=== PATIENT | female | born 1970 | race Caucasian/White ===

== ENCOUNTER 2020-07-27 12:32 | Inpatient (IN) | payer SELFPAY ==
[~2020-07-27] VITALS: Ht 162.6 cm; Wt 50.8 kg
[2020-07-27] MEDS ORDERED: KETOROLAC TROMETHAMINE 30 MG/ML VIAL IV STA (12:49)
[2020-07-27] MEDS ORDERED: ONDANSETRON HCL INJ 2MG/ML 2ML 2 MG/ML VIAL IV STA (12:49)
[2020-07-27] MEDS ORDERED: SODIUM CHLORIDE 0.9% 1000ML 1,000 ML IV STA (12:49)
[2020-07-27 13:10] LABS: BASOPHILS # (AUTO) 0.1 (0.0-0.1); BASOPHILS % 0.6 % (0.0-1.0); EOSINOPHILS # (AUTO) 0.3 (0.0-0.4); EOSINOPHILS % 2.1 % (0.0-6.0); HEMATOCRIT 46.9 % (34.2-44.1); HEMOGLOBIN 15.5 g/dL (12.0-16.0); LYMPHOCYTES # (AUTO) 1.2 (1.0-3.2); LYMPHOCYTES % 10.4 % (18.0-39.1); MEAN CORPUSCULAR HEMOGLOBIN 30.9 pg (28-32); MEAN CORPUSCULAR VOLUME 93.6 fL (81-99); MONOCYTES # (AUTO) 0.8 (0.2-0.8); MONOCYTES % 6.6 % (4.4-11.3); NEUTROPHILS # (AUTO) 9.6 (2.1-6.9); PLATELET COUNT 238 x10e3/uL (140-360); RED BLOOD COUNT 5.01 x10e6/uL (3.6-5.1); RED CELL DISTRIBUTION WIDTH 12.7 % (11.7-14.4)
[2020-07-27 13:28] LABS: ALBUMIN 4.3 g/dL (3.5-5.0); ALBUMIN/GLOBULIN RATIO 1.2 (0.8-2.0); ANION GAP 15.7 mmol/L (8-16); CALCIUM 9.1 mg/dL (8.4-10.2); CREATININE, SERUM 1.12 mg/dL (0.57-1.11); POTASSIUM 3.7 mmol/L (3.5-5.1)
[2020-07-27 13:35] LABS: CREATINE KINASE MB 0.5 ng/mL (0-5.0)
[2020-07-27] MEDS ORDERED: IOPAMIDOL 370 MG/ML 200 ML INFUS..BTL INJ ONE (13:43)
[2020-07-27 13:47] LABS: CLARITY,URINE CLEAR (CLEAR); COLOR,URINE YELLOW (YELLOW)
[2020-07-27 13:49] LABS: AMPHETAMINES SCREEN,URINE POSITIVE (NEGATIVE); BENZODIAZEPINES SCREEN,URINE NEGATIVE (NEGATIVE); KETONES,URINE 1+ (NEGATIVE); LEUKOCYTE ESTERASE ,URINE TRACE (NEGATIVE); NITRITE,URINE NEGATIVE (NEGATIVE); PHENCYCLIDINE SCREEN,URINE NEGATIVE (NEGATIVE); PROTEIN,URINE DIPSTICK 1+ (NEGATIVE); URINE UROBILINOGEN 0.2 mg/dL (0.2 - 1)
[2020-07-27 13:57] LABS: BACTERIA,URINE FEW /HPF; EPITHELIAL CELLS,URINE FEW /LPF; WBC,URINE (MAN) 21-50 /HPF (0-5)
[2020-07-27] MEDS ORDERED: ONDANSETRON HCL INJ 2MG/ML 2ML 2 MG/ML VIAL IV PRN (15:00)
[2020-07-27] MEDS ORDERED: MORPHINE SULFATE INJ 4 MG/ML INJ 1ML IV PRN (15:00)
[2020-07-27 17:16] VITALS: BP 125/86
[2020-07-27] MEDS ORDERED: CYCLOBENZAPRINE5 MG PO (17:24)
[2020-07-27] MEDS ORDERED: KLONOPIN0.5 MG PO (17:25)
[2020-07-27] MEDS ORDERED: CEFTRIAXONE SOD 1 GM/NS 50 ML 50 ML IV SCH (19:30)
[2020-07-27 20:00] VITALS: BP 136/80
[2020-07-27] MEDS: CEFTRIAXONE SOD 1 GM in SODIUM CHLORIDE 0.9% 50ML 50 ML IV SCH (20:35)
[2020-07-27] MEDS: D5.45%NS/KCL 20MEQ 1,000 ML IV SCH (20:35)
[2020-07-27 21:00] VITALS: BP 136/80
[2020-07-28] VITALS (8 sets, daily range): BP systolic 101–136; BP diastolic 69–90
[2020-07-28] MEDS: D5.45%NS/KCL 20MEQ 1,000 ML IV SCH ×3 (01:50→16:10)
[2020-07-28 05:52] LABS: BASOPHILS % 0.5 % (0.0-1.0); EOSINOPHILS # (AUTO) 0.3 (0.0-0.4); EOSINOPHILS % 4.2 % (0.0-6.0); HEMATOCRIT 36.4 % (34.2-44.1); HEMOGLOBIN 11.8 g/dL (12.0-16.0); LYMPHOCYTES # (AUTO) 1.5 (1.0-3.2); LYMPHOCYTES % 20.8 % (18.0-39.1); MEAN CORPUSCULAR HEMOGLOBIN 30.4 pg (28-32); MEAN CORPUSCULAR HGB CONC 32.4 g/dL (31-35); MEAN CORPUSCULAR VOLUME 93.8 fL (81-99); MONOCYTES # (AUTO) 0.8 (0.2-0.8); MONOCYTES % 11.1 % (4.4-11.3); NEUTROPHILS # (AUTO) 4.7 (2.1-6.9); NEUTROPHILS % 63.1 % (38.7-80.0); PLATELET COUNT 171 x10e3/uL (140-360); RED BLOOD COUNT 3.88 x10e6/uL (3.6-5.1); RED CELL DISTRIBUTION WIDTH 12.6 % (11.7-14.4)
[2020-07-28 07:19] LABS: ALBUMIN 2.5 g/dL (3.5-5.0); ALBUMIN/GLOBULIN RATIO 1.3 (0.8-2.0); ANION GAP 8.5 mmol/L (8-16); CREATININE, SERUM 1.05 mg/dL (0.57-1.11)
[2020-07-28 07:26] LABS: CALCIUM 6.7 mg/dL (8.4-10.2); POTASSIUM 6.5 mmol/L (3.5-5.1)
[2020-07-28 08:41] LABS: ALBUMIN/GLOBULIN RATIO 1.3 (0.8-2.0); CALCIUM 8.3 mg/dL (8.4-10.2); CREATININE, SERUM 0.99 mg/dL (0.57-1.11)
[2020-07-28 08:55] LABS: ALBUMIN 3.4 g/dL (3.5-5.0)
[2020-07-28 09:27] LABS: MAGNESIUM 1.5 MG/DL (1.3-2.1); PHOSPHORUS 3.2 MG/DL (2.3-4.7)
[2020-07-28] MEDS: PANTOPRAZOLE 40 MG 10ML VIAL IV SCH (09:48)
[2020-07-28] MEDS: CEFTRIAXONE SOD 1 GM in SODIUM CHLORIDE 0.9% 50ML 50 ML IV SCH (22:22)
[2020-07-28] MEDS: DEXTROSE 5%/0.45% SOD CHL 1,000 ML IV SCH (22:22)
[2020-07-29] VITALS (8 sets, daily range): BP systolic 102–130; BP diastolic 70–92
[2020-07-29 05:40] LABS: BASOPHILS % 0.5 % (0.0-1.0); EOSINOPHILS # (AUTO) 0.3 (0.0-0.4); EOSINOPHILS % 4.9 % (0.0-6.0); HEMATOCRIT 39.7 % (34.2-44.1); HEMOGLOBIN 13.2 g/dL (12.0-16.0); LYMPHOCYTES # (AUTO) 1.9 (1.0-3.2); LYMPHOCYTES % 30.1 % (18.0-39.1); MEAN CORPUSCULAR HEMOGLOBIN 31.1 pg (28-32); MEAN CORPUSCULAR HGB CONC 33.2 g/dL (31-35); MEAN CORPUSCULAR VOLUME 93.6 fL (81-99); MONOCYTES # (AUTO) 0.7 (0.2-0.8); MONOCYTES % 11.2 % (4.4-11.3); NEUTROPHILS # (AUTO) 3.4 (2.1-6.9); PLATELET COUNT 177 x10e3/uL (140-360); RED BLOOD COUNT 4.24 x10e6/uL (3.6-5.1); RED CELL DISTRIBUTION WIDTH 12.1 % (11.7-14.4)
[2020-07-29 05:59] LABS: ALANINE AMINOTRANSFERASE 49 IU/L (0-55); ALBUMIN 3.1 g/dL (3.5-5.0); ALBUMIN/GLOBULIN RATIO 1.3 (0.8-2.0); ALKALINE PHOSPHATASE 102 IU/L (40-150); ANION GAP 12.5 mmol/L (8-16); BLOOD UREA NITROGEN 7 mg/dL (7-26); BUN/CREATININE RATIO 8 (6-25); CALCIUM 8.2 mg/dL (8.4-10.2); CARBON DIOXIDE 22 mmol/L (22-29); CHLORIDE 110 mmol/L (98-107); EST GLOMERULAR FILTRATION RATE > 60 ML/MIN (60-); GLUCOSE 85 mg/dL (74-118); POTASSIUM 3.5 mmol/L (3.5-5.1); SODIUM 141 mmol/L (136-145)
[2020-07-29] MEDS: PANTOPRAZOLE 40 MG 10ML VIAL IV SCH (09:12)
[2020-07-29 09:21] LABS: MAGNESIUM 1.5 MG/DL (1.3-2.1); PHOSPHORUS 3.4 MG/DL (2.3-4.7)
[2020-07-29] MEDS ORDERED: SODIUM CHLORIDE 0.9% 50ML 50 ML ONE (12:27)
[2020-07-29] MEDS ORDERED: GADOBENATE DIMEGLUMINE 1 ML IV ONE (12:28)
[2020-07-29] MEDS ORDERED: NON-FORMULARY MEDICATION (Cyclobenzaprine Hcl (Flexeril) 5 MG) PO SCH (15:00)
[2020-07-29] MEDS ORDERED: CYCLOBENZAPRINE HCL PO SCH (15:00)
[2020-07-29] MEDS: DEXTROSE 5%/0.45% SOD CHL 1,000 ML IV SCH (15:15)
[2020-07-29] MEDS: CYCLOBENZAPRINE HCL 10 MG TAB PO SCH ×2 (15:35→21:36)
[2020-07-29 19:26] LABS: INR 0.97; PROTHROMBIN TIME 13.5 seconds (11.9-14.5)
[2020-07-29] MEDS: CEFTRIAXONE SOD 1 GM in SODIUM CHLORIDE 0.9% 50ML 50 ML IV SCH (21:36)
[2020-07-29] MEDS: CLONAZEPAM 0.5 MG TAB PO SCH (21:36)
[2020-07-30] VITALS (9 sets, daily range): BP systolic 100–127; BP diastolic 67–94
[2020-07-30] MEDS: DEXTROSE 5%/0.45% SOD CHL 1,000 ML IV SCH ×2 (02:51→11:15)
[2020-07-30 06:23] LABS: BASOPHILS # (AUTO) 0.1 (0.0-0.1); BASOPHILS % 0.7 % (0.0-1.0); EOSINOPHILS # (AUTO) 0.3 (0.0-0.4); EOSINOPHILS % 4.9 % (0.0-6.0); HEMATOCRIT 37.6 % (34.2-44.1); HEMOGLOBIN 12.5 g/dL (12.0-16.0); LYMPHOCYTES # (AUTO) 1.7 (1.0-3.2); MEAN CORPUSCULAR HEMOGLOBIN 30.7 pg (28-32); MEAN CORPUSCULAR HGB CONC 33.2 g/dL (31-35); MEAN CORPUSCULAR VOLUME 92.4 fL (81-99); MONOCYTES # (AUTO) 0.8 (0.2-0.8); MONOCYTES % 11.5 % (4.4-11.3); NEUTROPHILS # (AUTO) 3.9 (2.1-6.9); NEUTROPHILS % 57.6 % (38.7-80.0); PLATELET COUNT 174 x10e3/uL (140-360); RED BLOOD COUNT 4.07 x10e6/uL (3.6-5.1); RED CELL DISTRIBUTION WIDTH 12.4 % (11.7-14.4)
[2020-07-30 06:44] LABS: BILIRUBIN,DIRECT 0.2 mg/dL (0.0-0.5)
[2020-07-30] MEDS: CYCLOBENZAPRINE HCL 10 MG TAB PO SCH ×3 (09:00→21:00)
[2020-07-30] MEDS: PANTOPRAZOLE 40 MG 10ML VIAL IV SCH (09:00)
[2020-07-30 12:51] LABS: AMYLASE 38 U/L (25-125); LIPASE 18 U/L (8-78)
[2020-07-30] MEDS: CEFTRIAXONE SOD 1 GM in SODIUM CHLORIDE 0.9% 50ML 50 ML IV SCH (20:09)
[2020-07-30] MEDS: CLONAZEPAM 0.5 MG TAB PO SCH (21:00)
[2020-07-31] VITALS (8 sets, daily range): BP systolic 108–140; BP diastolic 68–90
[2020-07-31] MEDS: DEXTROSE 5%/0.45% SOD CHL 1,000 ML IV SCH ×3 (01:48→23:46)
[2020-07-31 05:25] LABS: BASOPHILS % 0.7 % (0.0-1.0); EOSINOPHILS # (AUTO) 0.3 (0.0-0.4); EOSINOPHILS % 5.9 % (0.0-6.0); HEMATOCRIT 38.5 % (34.2-44.1); HEMOGLOBIN 12.8 g/dL (12.0-16.0); LYMPHOCYTES # (AUTO) 1.8 (1.0-3.2); LYMPHOCYTES % 30.6 % (18.0-39.1); MEAN CORPUSCULAR HEMOGLOBIN 30.4 pg (28-32); MEAN CORPUSCULAR HGB CONC 33.2 g/dL (31-35); MEAN CORPUSCULAR VOLUME 91.4 fL (81-99); MONOCYTES # (AUTO) 0.7 (0.2-0.8); MONOCYTES % 12.8 % (4.4-11.3); NEUTROPHILS # (AUTO) 2.9 (2.1-6.9); NEUTROPHILS % 49.8 % (38.7-80.0); PLATELET COUNT 177 x10e3/uL (140-360); RED BLOOD COUNT 4.21 x10e6/uL (3.6-5.1); RED CELL DISTRIBUTION WIDTH 12.2 % (11.7-14.4)
[2020-07-31 05:48] LABS: ALANINE AMINOTRANSFERASE 37 IU/L (0-55); ALBUMIN 2.8 g/dL (3.5-5.0); ALBUMIN/GLOBULIN RATIO 1.1 (0.8-2.0); ALKALINE PHOSPHATASE 122 IU/L (40-150); ANION GAP 10.3 mmol/L (8-16); BLOOD UREA NITROGEN 5 mg/dL (7-26); BUN/CREATININE RATIO 6 (6-25); CALCIUM 7.8 mg/dL (8.4-10.2); CARBON DIOXIDE 25 mmol/L (22-29); CHLORIDE 108 mmol/L (98-107); CREATININE, SERUM 0.84 mg/dL (0.57-1.11); EST GLOMERULAR FILTRATION RATE > 60 ML/MIN (60-); GLUCOSE 93 mg/dL (74-118); POTASSIUM 3.3 mmol/L (3.5-5.1); SODIUM 140 mmol/L (136-145)
[2020-07-31] MEDS: CYCLOBENZAPRINE HCL 10 MG TAB PO SCH ×3 (09:00→21:00)
[2020-07-31] MEDS: PANTOPRAZOLE 40 MG 10ML VIAL IV SCH (09:24)
[2020-07-31] MEDS ORDERED: POTASSIUM CHLORIDE 20 MEQ TAB CR PO STA (11:28)
[2020-07-31] MEDS: CLONAZEPAM 0.5 MG TAB PO SCH (21:00)
[2020-07-31] MEDS: CEFTRIAXONE SOD 1 GM in SODIUM CHLORIDE 0.9% 50ML 50 ML IV SCH (23:46)
[2020-08-01] VITALS: BP 112/76
[2020-08-01 04:00] VITALS: BP 105/64
[2020-08-01] MEDS: DEXTROSE 5%/0.45% SOD CHL 1,000 ML IV SCH ×2 (05:24→13:15)
[2020-08-01 08:51] VITALS: BP 118/83
[2020-08-01 08:52] VITALS: BP 118/83
[2020-08-01] MEDS: CYCLOBENZAPRINE HCL 10 MG TAB PO SCH ×2 (09:00→14:06)
[2020-08-01] MEDS: PANTOPRAZOLE 40 MG 10ML VIAL IV SCH (09:21)
[2020-08-01 11:49] VITALS: BP 123/94
[2020-08-01] MEDS ORDERED: PANTOPRAZOLE SO40 MG PO (12:04)
[2020-08-01] MEDS ORDERED: ZOFRAN4 MG PO (12:04)
== END 2020-08-01 15:07 | disposition home or self-care (01) | DRG 445 ==
LOC: ER 13:35 → ERHOLD 14:50 → MED/SURG3 16:18
PROVIDERS: ADMIT Internal Medicine; ATTEND Internal Medicine
DX: K80.70 Calculus of gallbladder and bile duct without cholecystitis without obstruction (principal); N39.0 Urinary tract infection, site not specified; N17.9 Acute kidney failure, unspecified; F41.9 Anxiety disorder, unspecified; E87.6 Hypokalemia; Z20.822 Contact with and (suspected) exposure to COVID-19; Z90.49 Acquired absence of other specified parts of digestive tract; D72.829 Elevated white blood cell count, unspecified; R74.01 Elevation of levels of liver transaminase levels
CPT/HCPCS: 36415; 71045; 74177; 74183; 78227; 80053; 80076; 80307; 81001; 82150; 82550; 82553; 82948; 83690; 83735; 84100; 84484; 85025; 85610; 85730; 86301; 87086; 96367; 99284; A9537; J0696; J1885; J2405; J7030; Q9967; U0002

== ENCOUNTER 2020-08-02 23:56 | Inpatient (IN) | payer SELFPAY ==
[~2020-08-02] VITALS: Ht 162.6 cm; Wt 50.8 kg
[~2020-08-02 23:56] MED LIST: CYCLOBENZAPRINE5 MG PO; KLONOPIN0.5 MG PO; PANTOPRAZOLE SO40 MG PO; ZOFRAN4 MG PO
[2020-08-03] VITALS (8 sets, daily range): BP systolic 97–121; BP diastolic 69–84
[2020-08-03] MEDS ORDERED: SODIUM CHLORIDE 0.9% 1000ML 1,000 ML IV STA
[2020-08-03] MEDS ORDERED: MORPHINE SULFATE INJ 4 MG/ML INJ 1ML IV STA
[2020-08-03] MEDS ORDERED: ONDANSETRON HCL INJ 2MG/ML 2ML 2 MG/ML VIAL IV STA
[2020-08-03 00:49] LABS: BASOPHILS % 0.3 % (0.0-1.0); EOSINOPHILS # (AUTO) 0.2 (0.0-0.4); EOSINOPHILS % 2.1 % (0.0-6.0); HEMATOCRIT 46.8 % (34.2-44.1); HEMOGLOBIN 15.5 g/dL (12.0-16.0); LYMPHOCYTES # (AUTO) 1.1 (1.0-3.2); LYMPHOCYTES % 9.7 % (18.0-39.1); MEAN CORPUSCULAR HEMOGLOBIN 30.8 pg (28-32); MEAN CORPUSCULAR HGB CONC 33.1 g/dL (31-35); MEAN CORPUSCULAR VOLUME 92.9 fL (81-99); MONOCYTES # (AUTO) 0.9 (0.2-0.8); MONOCYTES % 7.9 % (4.4-11.3); NEUTROPHILS # (AUTO) 8.6 (2.1-6.9); NEUTROPHILS % 79.6 % (38.7-80.0); PLATELET COUNT 208 x10e3/uL (140-360); RED BLOOD COUNT 5.04 x10e6/uL (3.6-5.1); RED CELL DISTRIBUTION WIDTH 12.6 % (11.7-14.4)
[2020-08-03 01:03] LABS: ALBUMIN 3.9 g/dL (3.5-5.0); ALBUMIN/GLOBULIN RATIO 1.1 (0.8-2.0); ANION GAP 14.4 mmol/L (8-16); CALCIUM 9.3 mg/dL (8.4-10.2); CREATININE, SERUM 1.08 mg/dL (0.57-1.11); POTASSIUM 3.4 mmol/L (3.5-5.1)
[2020-08-03] MEDS: SODIUM CHLORIDE 0.9% 1000ML 1,000 ML IV SCH ×3 (03:15→17:15)
[2020-08-03] MEDS: MORPHINE SULFATE INJ 4 MG/ML INJ 1ML IV PRN (09:13)
[2020-08-03] MEDS: ONDANSETRON HCL INJ 2MG/ML 2ML 2 MG/ML VIAL IV PRN (09:13)
[2020-08-03 15:34] LABS: CLARITY,URINE CLEAR (CLEAR); COLOR,URINE AMBER (YELLOW); KETONES,URINE TRACE (NEGATIVE); LEUKOCYTE ESTERASE ,URINE NEGATIVE (NEGATIVE); NITRITE,URINE NEGATIVE (NEGATIVE); PROTEIN,URINE DIPSTICK NEGATIVE (NEGATIVE); URINE UROBILINOGEN 0.2 mg/dL (0.2 - 1)
[2020-08-03 15:47] LABS: BACTERIA,URINE MODERATE /HPF
[2020-08-03 15:48] LABS: RBC,URINE 0-5 /HPF (0-5); WBC,URINE (MAN) 0-5 /HPF (0-5)
[2020-08-03] MEDS: LACTATED RINGER'S 1,000 ML INJ SCH (23:15)
[2020-08-04] VITALS (8 sets, daily range): BP systolic 119–141; BP diastolic 61–111
[2020-08-04] MEDS: LACTATED RINGER'S 1,000 ML INJ SCH ×2 (02:15→06:03)
[2020-08-04 06:02] LABS: BASOPHILS # (AUTO) 0.1 (0.0-0.1); BASOPHILS % 0.8 % (0.0-1.0); EOSINOPHILS # (AUTO) 0.3 (0.0-0.4); EOSINOPHILS % 4.1 % (0.0-6.0); HEMATOCRIT 39.3 % (34.2-44.1); HEMOGLOBIN 12.6 g/dL (12.0-16.0); LYMPHOCYTES # (AUTO) 2.3 (1.0-3.2); LYMPHOCYTES % 34.6 % (18.0-39.1); MEAN CORPUSCULAR HEMOGLOBIN 30.9 pg (28-32); MEAN CORPUSCULAR HGB CONC 32.1 g/dL (31-35); MEAN CORPUSCULAR VOLUME 96.3 fL (81-99); MONOCYTES # (AUTO) 0.6 (0.2-0.8); MONOCYTES % 9.7 % (4.4-11.3); NEUTROPHILS # (AUTO) 3.4 (2.1-6.9); NEUTROPHILS % 50.5 % (38.7-80.0); PLATELET COUNT 160 x10e3/uL (140-360); RED BLOOD COUNT 4.08 x10e6/uL (3.6-5.1); RED CELL DISTRIBUTION WIDTH 12.3 % (11.7-14.4)
[2020-08-04 06:37] LABS: ALANINE AMINOTRANSFERASE 87 IU/L (0-55); ALBUMIN 2.9 g/dL (3.5-5.0); ALBUMIN/GLOBULIN RATIO 1.2 (0.8-2.0); ALKALINE PHOSPHATASE 147 IU/L (40-150); ANION GAP 11.8 mmol/L (8-16); BLOOD UREA NITROGEN 7 mg/dL (7-26); BUN/CREATININE RATIO 8 (6-25); CALCIUM 8.3 mg/dL (8.4-10.2); CARBON DIOXIDE 23 mmol/L (22-29); CHLORIDE 110 mmol/L (98-107); EST GLOMERULAR FILTRATION RATE > 60 ML/MIN (60-); POTASSIUM 3.8 mmol/L (3.5-5.1); SODIUM 141 mmol/L (136-145)
[2020-08-04 06:44] LABS: GLUCOSE 48 mg/dL (74-118)
[2020-08-04] MEDS ORDERED: DEXTROSE 50% SYRINGE 50 ML IV ONE (07:20)
[2020-08-04] MEDS: DEXTROSE 5%/0.45% SOD CHL 1,000 ML IV SCH ×4 (08:03→22:56)
[2020-08-04] MEDS: LORAZEPAM INJ 2 MG/ML VIAL IV PRN ×2 (11:24→23:47)
[2020-08-04] MEDS ORDERED: GADOBENATE DIMEGLUMINE 1 ML IV ONE (11:44)
[2020-08-04] MEDS ORDERED: SODIUM CHLORIDE 0.9% 50ML 50 ML ONE (11:44)
[2020-08-05] VITALS (8 sets, daily range): BP systolic 105–137; BP diastolic 73–93
[2020-08-05] MEDS: DEXTROSE 5%/0.45% SOD CHL 1,000 ML IV SCH ×3 (03:50→16:16)
[2020-08-05] MEDS ORDERED: BUPIVACAINE 0.25% 30ML SDV ONE (07:53)
[2020-08-05] MEDS ORDERED: HYDRALAZINE HCL 20 MG/ML VIAL ONE (09:34)
[2020-08-05] MEDS ORDERED: FENTANYL CITRATE/PF 100MCG/2 ML INJ ONE (09:56)
[2020-08-05 11:01] LABS: ANION GAP 12.5 mmol/L (8-16); BLOOD UREA NITROGEN < 5 mg/dL (7-26); CALCIUM 8.4 mg/dL (8.4-10.2); CARBON DIOXIDE 21 mmol/L (22-29); CHLORIDE 110 mmol/L (98-107); CREATININE, SERUM 0.94 mg/dL (0.57-1.11); EST GLOMERULAR FILTRATION RATE > 60 ML/MIN (60-); GLUCOSE 97 mg/dL (74-118); LIPASE 58 U/L (8-78); POTASSIUM 4.5 mmol/L (3.5-5.1); SODIUM 139 mmol/L (136-145)
[2020-08-05 11:02] LABS: BUN/CREATININE RATIO 5 (6-25)
[2020-08-05] MEDS ORDERED: CEFOXITIN SOD 1 GM VIAL ONE (12:44)
[2020-08-05] MEDS ORDERED: PROPOFOL IV EMULSION 10 MG/ML 20 ML VIAL ONE (12:44)
[2020-08-05] MEDS ORDERED: ATROPINE SULFATE 1 MG/ML VIAL ONE (12:44)
[2020-08-05] MEDS ORDERED: NEOSTIGMINE 1 MG/ML 10ML VIAL ONE (12:44)
[2020-08-05] MEDS ORDERED: LIDOCAINE HCL 2% LOCAL INJ 5 ML SDV VIAL INJ ONE (12:44)
[2020-08-05] MEDS ORDERED: DEXAMETHASONE SOD PHOS INJ 4 MG/ML VIAL ONE (12:44)
[2020-08-05] MEDS ORDERED: ONDANSETRON HCL INJ 2MG/ML 2ML 2 MG/ML VIAL ONE (12:44)
[2020-08-05] MEDS ORDERED: KETOROLAC TROMETHAMINE 30 MG/ML VIAL ONE (12:44)
[2020-08-05] MEDS ORDERED: SEVOFLURANE INHAL SOLN 250 ML PEN BTL ONE (12:44)
[2020-08-05] MEDS ORDERED: ROCURONIUM BROMIDE 10 MG/ML 5ML VIAL IV ONE (12:44)
[2020-08-05] MEDS: CEFOXITIN 1GM/0.9% NS 50ML 50 ML IV SCH ×2 (13:10→20:42)
[2020-08-05] MEDS: LORAZEPAM INJ 2 MG/ML VIAL IV PRN (14:26)
[2020-08-05] MEDS ORDERED: CLONAZEPAM 0.5 MG TAB PO PRN (19:00)
[2020-08-05] MEDS: ONDANSETRON HCL INJ 2MG/ML 2ML 2 MG/ML VIAL IV PRN (20:43)
[2020-08-05] MEDS: MORPHINE SULFATE INJ 4 MG/ML INJ 1ML IV PRN (20:57)
[2020-08-06 00:06] VITALS: BP 94/69
[2020-08-06] MEDS: DEXTROSE 5%/0.45% SOD CHL 1,000 ML IV SCH ×2 (00:11→07:21)
[2020-08-06] MEDS: CEFOXITIN 1GM/0.9% NS 50ML 50 ML IV SCH (01:17)
[2020-08-06 04:36] VITALS: BP 95/56
[2020-08-06 07:03] LABS: BASOPHILS # (AUTO) 0.1 (0.0-0.1); BASOPHILS % 0.4 % (0.0-1.0); EOSINOPHILS # (AUTO) 0.3 (0.0-0.4); EOSINOPHILS % 2.4 % (0.0-6.0); HEMATOCRIT 33.9 % (34.2-44.1); HEMOGLOBIN 11.2 g/dL (12.0-16.0); LYMPHOCYTES # (AUTO) 1.4 (1.0-3.2); LYMPHOCYTES % 10.3 % (18.0-39.1); MEAN CORPUSCULAR HEMOGLOBIN 30.4 pg (28-32); MEAN CORPUSCULAR VOLUME 91.9 fL (81-99); MONOCYTES # (AUTO) 1.4 (0.2-0.8); NEUTROPHILS # (AUTO) 10.5 (2.1-6.9); NEUTROPHILS % 76.5 % (38.7-80.0); PLATELET COUNT 165 x10e3/uL (140-360); RED BLOOD COUNT 3.69 x10e6/uL (3.6-5.1); RED CELL DISTRIBUTION WIDTH 12.2 % (11.7-14.4)
[2020-08-06 07:21] LABS: ALANINE AMINOTRANSFERASE 41 IU/L (0-55); ALBUMIN 2.6 g/dL (3.5-5.0); ALBUMIN/GLOBULIN RATIO 1.2 (0.8-2.0); ALKALINE PHOSPHATASE 110 IU/L (40-150); ANION GAP 10.3 mmol/L (8-16); BLOOD UREA NITROGEN < 5 mg/dL (7-26); CALCIUM 7.6 mg/dL (8.4-10.2); CARBON DIOXIDE 24 mmol/L (22-29); CHLORIDE 111 mmol/L (98-107); CREATININE, SERUM 0.93 mg/dL (0.57-1.11); EST GLOMERULAR FILTRATION RATE > 60 ML/MIN (60-); GLUCOSE 111 mg/dL (74-118); SODIUM 142 mmol/L (136-145)
[2020-08-06 07:22] LABS: BUN/CREATININE RATIO 5 (6-25); POTASSIUM 3.3 mmol/L (3.5-5.1)
[2020-08-06 07:49] VITALS: BP 103/66
[2020-08-06 07:52] LABS: MAGNESIUM 1.3 MG/DL (1.3-2.1); PHOSPHORUS 3.5 MG/DL (2.3-4.7)
[2020-08-06 08:10] VITALS: BP 103/66
[2020-08-06] MEDS ORDERED: ULTRAM50 MG PO (10:05)
== END 2020-08-06 10:40 | disposition home or self-care (01) | DRG 415 ==
LOC: ER 08-03 → ERHOLD 08-03 02:21 → MED/SURG 08-03 03:13 → OBSVTOIN 08-03 10:21
PROVIDERS: ADMIT Internal Medicine; ATTEND Internal Medicine
PROC: 0FT40ZZ Resection of Gallbladder, Open Approach (ICD-10-PCS; principal; 2020-08-05 08:06)
DX: K85.10 Biliary acute pancreatitis without necrosis or infection (principal); N17.9 Acute kidney failure, unspecified; N39.0 Urinary tract infection, site not specified; K80.10 Calculus of gallbladder with chronic cholecystitis without obstruction; F41.9 Anxiety disorder, unspecified; F32.9 Major depressive disorder, single episode, unspecified; Z20.822 Contact with and (suspected) exposure to COVID-19; F17.210 Nicotine dependence, cigarettes, uncomplicated
CPT/HCPCS: 36415; 74183; 80048; 80053; 81001; 82948; 83690; 83735; 84100; 85025; 88304; 99284; J0360; J0461; J0694; J1100; J1885; J2001; J2060; J2270; J2405; J2710; J3010; J7030; J7121; J7799; U0002

== ENCOUNTER 2020-10-22 22:11 | Inpatient (IN) | payer OTHER ==
[~2020-10-22] VITALS: Ht 162.6 cm; Wt 47.6 kg
[~2020-10-22 22:11] MED LIST changes: +ULTRAM50 MG PO
[2020-10-22] MEDS ORDERED: SODIUM CHLORIDE 0.9% 1000ML 1,000 ML IV STA (23:02)
[2020-10-22] MEDS ORDERED: PANTOPRAZOLE 40 MG 10ML VIAL IV STA (23:02)
[2020-10-22] MEDS ORDERED: ONDANSETRON HCL INJ 2MG/ML 2ML 2 MG/ML VIAL IV STA (23:02)
[2020-10-22] MEDS ORDERED: MORPHINE SULFATE INJ 4 MG/ML INJ 1ML IV PRN (23:15)
[2020-10-23 00:20] LABS: BASOPHILS # (AUTO) 0.1 (0.0-0.1); BASOPHILS % 0.4 % (0.0-1.0); EOSINOPHILS # (AUTO) 0.2 (0.0-0.4); EOSINOPHILS % 0.9 % (0.0-6.0); HEMATOCRIT 48.3 % (34.2-44.1); HEMOGLOBIN 16.6 g/dL (12.0-16.0); LYMPHOCYTES # (AUTO) 1.9 (1.0-3.2); LYMPHOCYTES % 10.8 % (18.0-39.1); MEAN CORPUSCULAR HEMOGLOBIN 31.4 pg (28-32); MEAN CORPUSCULAR HGB CONC 34.4 g/dL (31-35); MEAN CORPUSCULAR VOLUME 91.3 fL (81-99); MONOCYTES # (AUTO) 1.1 (0.2-0.8); MONOCYTES % 6.4 % (4.4-11.3); NEUTROPHILS # (AUTO) 14.3 (2.1-6.9); PLATELET COUNT 280 x10e3/uL (140-360); RED BLOOD COUNT 5.29 x10e6/uL (3.6-5.1); RED CELL DISTRIBUTION WIDTH 12.5 % (11.7-14.4)
[2020-10-23 00:41] LABS: ALANINE AMINOTRANSFERASE 11 IU/L (0-55); ALBUMIN 4.4 g/dL (3.5-5.0); ALBUMIN/GLOBULIN RATIO 1.2 (0.8-2.0); ALKALINE PHOSPHATASE 90 IU/L (40-150); ANION GAP 17.3 mmol/L (8-16); BLOOD UREA NITROGEN 14 mg/dL (7-26); BUN/CREATININE RATIO 13 (6-25); CARBON DIOXIDE 25 mmol/L (22-29); CHLORIDE 103 mmol/L (98-107); CREATINE KINASE 56 IU/L (29-168); CREATININE, SERUM 1.12 mg/dL (0.57-1.11); EST GLOMERULAR FILTRATION RATE 51 ML/MIN (60-); GLUCOSE 107 mg/dL (74-118); POTASSIUM 3.3 mmol/L (3.5-5.1); SODIUM 142 mmol/L (136-145)
[2020-10-23] MEDS ORDERED: IOPAMIDOL 370 MG/ML 200 ML INFUS..BTL INJ ONE (01:50)
[2020-10-23] MEDS ORDERED: SODIUM CHLORIDE 0.9% 50ML 50 ML ONE (01:50)
[2020-10-23] MEDS ORDERED: MORPHINE SULFATE INJ 4 MG/ML INJ 1ML IV PRN ×2 (05:15→18:30)
[2020-10-23] MEDS ORDERED: MORPHINE SULFATE INJ 4 MG/ML INJ 1ML ONE (05:21)
[2020-10-23] MEDS ORDERED: ONDANSETRON HCL INJ 2MG/ML 2ML 2 MG/ML VIAL IV PRN (06:45)
[2020-10-23] MEDS ORDERED: DEXTROSE 5%/0.45% SOD CHL 1,000 ML IV ONE (06:45)
[2020-10-23] MEDS: FAMOTIDINE 20 MG/2 ML VIAL IV SCH ×2 (09:24→17:16)
[2020-10-23 12:50] VITALS: BP 107/82
[2020-10-23 12:53] VITALS: BP 107/82
[2020-10-23 17:20] VITALS: BP 115/81
[2020-10-23 21:29] VITALS: BP 104/80
[2020-10-23 21:36] VITALS: BP 104/80
[2020-10-24] VITALS (7 sets, daily range): BP systolic 86–105; BP diastolic 62–77
[2020-10-24 06:16] LABS: BASOPHILS % 0.6 % (0.0-1.0); EOSINOPHILS # (AUTO) 0.3 (0.0-0.4); EOSINOPHILS % 5.1 % (0.0-6.0); HEMATOCRIT 37.9 % (34.2-44.1); LYMPHOCYTES # (AUTO) 1.7 (1.0-3.2); MEAN CORPUSCULAR HEMOGLOBIN 31.8 pg (28-32); MEAN CORPUSCULAR HGB CONC 34.3 g/dL (31-35); MEAN CORPUSCULAR VOLUME 92.7 fL (81-99); MONOCYTES # (AUTO) 0.8 (0.2-0.8); MONOCYTES % 12.2 % (4.4-11.3); NEUTROPHILS # (AUTO) 3.7 (2.1-6.9); NEUTROPHILS % 55.8 % (38.7-80.0); PLATELET COUNT 227 x10e3/uL (140-360); RED BLOOD COUNT 4.09 x10e6/uL (3.6-5.1); RED CELL DISTRIBUTION WIDTH 12.5 % (11.7-14.4)
[2020-10-24 06:41] LABS: ALANINE AMINOTRANSFERASE 123 IU/L (0-55); ALBUMIN 2.9 g/dL (3.5-5.0); ALBUMIN/GLOBULIN RATIO 1.1 (0.8-2.0); ALKALINE PHOSPHATASE 130 IU/L (40-150); ANION GAP 11.2 mmol/L (8-16); BLOOD UREA NITROGEN 10 mg/dL (7-26); BUN/CREATININE RATIO 11 (6-25); CALCIUM 8.4 mg/dL (8.4-10.2); CARBON DIOXIDE 21 mmol/L (22-29); CHLORIDE 111 mmol/L (98-107); CREATININE, SERUM 0.93 mg/dL (0.57-1.11); EST GLOMERULAR FILTRATION RATE > 60 ML/MIN (60-); GLUCOSE 80 mg/dL (74-118); POTASSIUM 3.2 mmol/L (3.5-5.1); SODIUM 140 mmol/L (136-145)
[2020-10-24 07:02] LABS: MAGNESIUM 1.6 MG/DL (1.3-2.1); PHOSPHORUS 3.2 MG/DL (2.3-4.7)
[2020-10-24] MEDS: DEXTROSE 5%/0.45% SOD CHL 1,000 ML IV SCH (09:18)
[2020-10-24] MEDS: FAMOTIDINE 20 MG/2 ML VIAL IV SCH ×2 (09:18→17:19)
[2020-10-24] MEDS ORDERED: POTASSIUM CHLORIDE 20 MEQ TAB CR PO ONE (10:45)
[2020-10-25 00:12] VITALS: BP 96/81
[2020-10-25 04:12] VITALS: BP 101/78
[2020-10-25] MEDS: DEXTROSE 5%/0.45% SOD CHL 1,000 ML IV SCH (04:52)
[2020-10-25 06:26] LABS: BASOPHILS # (AUTO) 0.1 (0.0-0.1); BASOPHILS % 0.8 % (0.0-1.0); EOSINOPHILS # (AUTO) 0.4 (0.0-0.4); EOSINOPHILS % 6.5 % (0.0-6.0); HEMATOCRIT 36.7 % (34.2-44.1); HEMOGLOBIN 12.4 g/dL (12.0-16.0); MEAN CORPUSCULAR HEMOGLOBIN 31.2 pg (28-32); MEAN CORPUSCULAR HGB CONC 33.8 g/dL (31-35); MEAN CORPUSCULAR VOLUME 92.4 fL (81-99); MONOCYTES # (AUTO) 0.8 (0.2-0.8); MONOCYTES % 12.9 % (4.4-11.3); NEUTROPHILS % 47.6 % (38.7-80.0); PLATELET COUNT 186 x10e3/uL (140-360); RED BLOOD COUNT 3.97 x10e6/uL (3.6-5.1); RED CELL DISTRIBUTION WIDTH 12.3 % (11.7-14.4)
[2020-10-25 06:52] LABS: ANION GAP 11.6 mmol/L (8-16); BLOOD UREA NITROGEN 7 mg/dL (7-26); BUN/CREATININE RATIO 8 (6-25); CALCIUM 8.3 mg/dL (8.4-10.2); CARBON DIOXIDE 20 mmol/L (22-29); CHLORIDE 113 mmol/L (98-107); CREATININE, SERUM 0.87 mg/dL (0.57-1.11); EST GLOMERULAR FILTRATION RATE > 60 ML/MIN (60-); GLUCOSE 86 mg/dL (74-118); POTASSIUM 3.6 mmol/L (3.5-5.1); SODIUM 141 mmol/L (136-145)
[2020-10-25] MEDS: FAMOTIDINE 20 MG/2 ML VIAL IV SCH (07:50)
[2020-10-25 08:13] VITALS: BP 100/53
[2020-10-25 09:57] VITALS: BP 100/53
[2020-10-25 09:59] VITALS: BP 100/53
[2020-10-25 12:11] VITALS: BP 100/63
== END 2020-10-25 15:46 | disposition home or self-care (01) | DRG 389 ==
LOC: ER 23:19 → ERHOLD 10-23 03:34 → MED/SURG3 10-23 12:17
PROVIDERS: ADMIT Internal Medicine; ATTEND Internal Medicine
DX: K56.600 Partial intestinal obstruction, unspecified as to cause (principal); N17.9 Acute kidney failure, unspecified; E44.1 Mild protein-calorie malnutrition; Z68.1 Body mass index [BMI] 19.9 or less, adult; E87.6 Hypokalemia; K59.00 Constipation, unspecified; F41.9 Anxiety disorder, unspecified; Z85.41 Personal history of malignant neoplasm of cervix uteri; Z88.1 Allergy status to other antibiotic agents; Z88.8 Allergy status to other drugs, medicaments and biological substances; Z20.822 Contact with and (suspected) exposure to COVID-19
CPT/HCPCS: 36415; 74018; 74177; 80048; 80053; 82550; 82553; 83690; 83735; 84100; 84484; 85025; 93005; 99284; J2270; J2405; J7030; Q9967; U0002

== ENCOUNTER 2022-09-25 13:11 | Inpatient (IN) | payer BC, OTHER ==
[~2022-09-25] VITALS: Ht 162.6 cm; Wt 46.7 kg
[~2022-09-25 13:11] MED LIST changes: +CEPHALEXIN500 MG PO; +METRONIDAZOLE500 MG PO; +ONDANSETRON ODT4 MG PO
[2022-09-25] MEDS ORDERED: ONDANSETRON HCL INJ 2MG/ML 2ML 2 MG/ML VIAL IV STA (14:11)
[2022-09-25] MEDS ORDERED: SODIUM CHLORIDE 0.9% 1000ML 1,000 ML IV ONE (14:15)
[2022-09-25 14:25] LABS: BASOPHILS # (AUTO) 0.1 (0.0-0.1); BASOPHILS % 0.6 % (0.0-1.0); EOSINOPHILS # (AUTO) 0.3 (0.0-0.4); EOSINOPHILS % 2.7 % (0.0-6.0); HEMATOCRIT 42.6 % (34.2-44.1); HEMOGLOBIN 14.7 g/dL (12.0-16.0); LYMPHOCYTES # (AUTO) 1.9 (1.0-3.2); LYMPHOCYTES % 20.7 % (18.0-39.1); MEAN CORPUSCULAR HEMOGLOBIN 32.3 pg (28-32); MEAN CORPUSCULAR HGB CONC 34.5 g/dL (31-35); MEAN CORPUSCULAR VOLUME 93.6 fL (81-99); MONOCYTES # (AUTO) 0.9 (0.2-0.8); MONOCYTES % 9.2 % (4.4-11.3); NEUTROPHILS # (AUTO) 6.1 (2.1-6.9); NEUTROPHILS % 66.5 % (38.7-80.0); PLATELET COUNT 171 x10e3/uL (140-360); RED BLOOD COUNT 4.55 x10e6/uL (3.6-5.1); RED CELL DISTRIBUTION WIDTH 13.4 % (11.7-14.4)
[2022-09-25 14:48] LABS: ALBUMIN 3.9 g/dL (3.5-5.0); ALBUMIN/GLOBULIN RATIO 1.1 (0.8-2.0); ANION GAP 18.8 mmol/L (8-16); CALCIUM 8.6 mg/dL (8.4-10.2); CREATININE, SERUM 1.57 mg/dL (0.57-1.11); POTASSIUM 3.8 mmol/L (3.5-5.1)
[2022-09-25 15:16] LABS: CLARITY,URINE CLEAR (CLEAR); COLOR,URINE YELLOW (YELLOW); KETONES,URINE NEGATIVE (NEGATIVE); LEUKOCYTE ESTERASE ,URINE NEGATIVE (NEGATIVE); NITRITE,URINE NEGATIVE (NEGATIVE); PROTEIN,URINE DIPSTICK 1+ (NEGATIVE); URINE UROBILINOGEN 0.2 mg/dL (0.2 - 1)
[2022-09-25 15:41] LABS: BACTERIA,URINE FEW /HPF; EPITHELIAL CELLS,URINE MODERATE /LPF; RBC,URINE 0-5 /HPF (0-5)
[2022-09-25] MEDS ORDERED: ONDANSETRON HCL INJ 2MG/ML 2ML 2 MG/ML VIAL IV PRN (16:30)
[2022-09-25] MEDS: SODIUM CHLORIDE 0.9% 1000ML 1,000 ML IV SCH ×2 (17:02→18:28)
[2022-09-25 17:41] VITALS: BP 102/66
[2022-09-25 17:48] VITALS: BP 102/66
[2022-09-25] MEDS ORDERED: PIPERACILLIN/TAZOBACTAM 3.375 GM VIAL ONE (18:30)
[2022-09-25 20:45] VITALS: BP 97/71
[2022-09-25] MEDS: CLONAZEPAM 0.5 MG TAB PO SCH (21:13)
[2022-09-25 21:30] VITALS: BP 97/71
[2022-09-26] VITALS (11 sets, daily range): BP systolic 74–105; BP diastolic 53–73
[2022-09-26] MEDS: SODIUM CHLORIDE 0.9% 1000ML 1,000 ML IV SCH ×2 (04:31→16:37)
[2022-09-26] MEDS ORDERED: SODIUM CHLORIDE 0.9% 1000ML 500 ML IV STA (05:41)
[2022-09-26 06:48] LABS: BASOPHILS # (AUTO) 0.1 (0.0-0.1); EOSINOPHILS # (AUTO) 0.3 (0.0-0.4); EOSINOPHILS % 5.2 % (0.0-6.0); HEMATOCRIT 35.4 % (34.2-44.1); HEMOGLOBIN 11.5 g/dL (12.0-16.0); LYMPHOCYTES # (AUTO) 0.6 (1.0-3.2); LYMPHOCYTES % 10.8 % (18.0-39.1); MEAN CORPUSCULAR HEMOGLOBIN 31.9 pg (28-32); MEAN CORPUSCULAR HGB CONC 32.5 g/dL (31-35); MEAN CORPUSCULAR VOLUME 98.1 fL (81-99); MONOCYTES # (AUTO) 0.7 (0.2-0.8); MONOCYTES % 12.2 % (4.4-11.3); NEUTROPHILS % 70.5 % (38.7-80.0); PLATELET COUNT 162 x10e3/uL (140-360); RED BLOOD COUNT 3.61 x10e6/uL (3.6-5.1)
[2022-09-26] MEDS ORDERED: SODIUM CHLORIDE 0.45% 1,000 ML IV ONE (07:00)
[2022-09-26] MEDS ORDERED: CYCLOBENZAPRINE HCL 10 MG TAB PO PRN (07:00)
[2022-09-26 07:09] LABS: ALBUMIN 2.7 g/dL (3.5-5.0); ALBUMIN/GLOBULIN RATIO 1.2 (0.8-2.0); ANION GAP 9.9 mmol/L (8-16); CALCIUM 7.3 mg/dL (8.4-10.2); CREATININE, SERUM 1.38 mg/dL (0.57-1.11)
[2022-09-26] MEDS ORDERED: DOCUSATE SODIUM 100 MG CAP PO PRN (07:15)
[2022-09-26] MEDS ORDERED: MELATONIN 3 MG TAB PO PRN (07:15)
[2022-09-26] MEDS ORDERED: ACETAMINOPHEN 325 MG TAB PO PRN (07:15)
[2022-09-26] MEDS ORDERED: SIMETHICONE 80 MG CHEW PO PRN (07:15)
[2022-09-26 07:20] LABS: POTASSIUM 2.9 mmol/L (3.5-5.1)
[2022-09-26] MEDS ORDERED: SODIUM CHLORIDE 0.9% IV ONE (08:15)
[2022-09-26] MEDS ORDERED: POTASSIUM CHLORIDE 20 MEQ TAB CR PO SCH (08:15)
[2022-09-26] MEDS: PANTOPRAZOLE SOD 40 MG TABEC PO SCH ×2 (08:51→18:18)
[2022-09-26] MEDS: CLONAZEPAM 0.5 MG TAB PO SCH (20:33)
[2022-09-27] VITALS (8 sets, daily range): BP systolic 81–149; BP diastolic 63–95
[2022-09-27] MEDS: SODIUM CHLORIDE 0.9% 1000ML 1,000 ML IV SCH ×3 (03:25→18:30)
[2022-09-27] MEDS: PANTOPRAZOLE SOD 40 MG TABEC PO SCH ×2 (08:52→21:05)
[2022-09-27 10:07] LABS: CALCIUM 7.4 mg/dL (8.4-10.2); CREATININE, SERUM 1.25 mg/dL (0.57-1.11)
[2022-09-27] MEDS ORDERED: POTASSIUM CHLORIDE 20 MEQ TAB CR PO ONE (11:00)
[2022-09-27] MEDS: SODIUM BICARBONATE 650 MG TAB PO SCH ×3 (11:50→22:31)
[2022-09-27] MEDS: CLONAZEPAM 0.5 MG TAB PO SCH (21:05)
[2022-09-28 00:50] VITALS: BP 110/74
[2022-09-28] MEDS: SODIUM CHLORIDE 0.9% 1000ML 1,000 ML IV SCH (02:54)
[2022-09-28 05:29] VITALS: BP 90/64
[2022-09-28] MEDS: SODIUM BICARBONATE 650 MG TAB PO SCH ×2 (05:58→15:49)
[2022-09-28] MEDS: PANTOPRAZOLE SOD 40 MG TABEC PO SCH (06:22)
[2022-09-28 08:30] VITALS: BP 92/70
[2022-09-28 08:55] VITALS: BP 92/70
[2022-09-28 11:59] VITALS: BP 121/83
[2022-09-28] MEDS ORDERED: ONDANSETRON HCL 4 MG ORAL DISINTEGRATING TAB PO PRN (13:00)
[2022-09-28 16:20] VITALS: BP 106/78
== END 2022-09-28 17:30 | disposition home or self-care (01) | DRG 690 ==
LOC: ER 14:01 → ERHOLD 16:32 → MED/SURG3 17:41 → OBSVTOIN 09-28 10:38
PROVIDERS: ADMIT Internal Medicine; ATTEND Internal Medicine
PROC: 02HV33Z Insertion of Infusion Device into Superior Vena Cava, Percutaneous Approach (ICD-10-PCS; principal; 2022-09-27)
DX: N39.0 Urinary tract infection, site not specified (principal); N17.9 Acute kidney failure, unspecified; E87.20 Acidosis, unspecified; B96.1 Klebsiella pneumoniae [K. pneumoniae] as the cause of diseases classified elsewhere; E87.6 Hypokalemia; K21.9 Gastro-esophageal reflux disease without esophagitis; M19.90 Unspecified osteoarthritis, unspecified site; F41.9 Anxiety disorder, unspecified; N18.30 Chronic kidney disease, stage 3 unspecified; F17.210 Nicotine dependence, cigarettes, uncomplicated; Z20.822 Contact with and (suspected) exposure to COVID-19; Z85.41 Personal history of malignant neoplasm of cervix uteri; Z92.21 Personal history of antineoplastic chemotherapy; Z92.3 Personal history of irradiation; Z90.49 Acquired absence of other specified parts of digestive tract; Z93.3 Colostomy status
CPT/HCPCS: 36415; 36568; 80048; 80053; 81001; 83735; 85025; 99284; G0378; J2185; J2543; J7030

== ENCOUNTER 2022-10-08 11:30 | Emergency (ER) | payer BC, OTHER ==
[~2022-10-08] VITALS: Ht 162.6 cm; Wt 47.6 kg
[2022-10-08 12:26] LABS: BASOPHILS # (AUTO) 0.1 (0.0-0.1); BASOPHILS % 1.3 % (0.0-1.0); EOSINOPHILS # (AUTO) 0.5 (0.0-0.4); EOSINOPHILS % 6.3 % (0.0-6.0); HEMATOCRIT 39.9 % (34.2-44.1); HEMOGLOBIN 13.4 g/dL (12.0-16.0); LYMPHOCYTES # (AUTO) 1.8 (1.0-3.2); LYMPHOCYTES % 24.6 % (18.0-39.1); MEAN CORPUSCULAR HEMOGLOBIN 32.4 pg (28-32); MEAN CORPUSCULAR HGB CONC 33.6 g/dL (31-35); MEAN CORPUSCULAR VOLUME 96.4 fL (81-99); MONOCYTES # (AUTO) 0.8 (0.2-0.8); NEUTROPHILS % 56.7 % (38.7-80.0); PLATELET COUNT 236 x10e3/uL (140-360); RED BLOOD COUNT 4.14 x10e6/uL (3.6-5.1); RED CELL DISTRIBUTION WIDTH 12.8 % (11.7-14.4)
[2022-10-08 12:40] LABS: INR 0.98; PROTHROMBIN TIME 13.5 seconds (11.9-14.5)
[2022-10-08 12:41] LABS: PARTIAL THROMBOPLASTIN TIME 32.6 seconds (23.8-35.5)
[2022-10-08 12:44] LABS: ALBUMIN 3.4 g/dL (3.5-5.0); ALBUMIN/GLOBULIN RATIO 0.9 (0.8-2.0); ANION GAP 12.7 mmol/L (8-16); CALCIUM 8.8 mg/dL (8.4-10.2); CREATININE, SERUM 1.18 mg/dL (0.57-1.11); POTASSIUM 3.7 mmol/L (3.5-5.1)
[2022-10-08] MEDS ORDERED: KETOROLAC TROMETHAMINE 30 MG/ML VIAL IV STA (12:52)
[2022-10-08] MEDS ORDERED: SODIUM CHLORIDE 0.9% 1000ML 1,000 ML IV STA (13:56)
[2022-10-08] MEDS ORDERED: IOPAMIDOL 370 MG/ML 100 ML INFUS..BTL INJ ONE (14:29)
[2022-10-08] MEDS ORDERED: NAPROSYN500 MG PO (15:28)
[2022-10-08 15:54] VITALS: BP 125/88
== END 2022-10-08 16:00 | disposition home or self-care (01) ==
LOC: ER 11:35
DX: R07.89 Other chest pain (principal); J43.9 Emphysema, unspecified; N18.30 Chronic kidney disease, stage 3 unspecified; F41.9 Anxiety disorder, unspecified; Z85.41 Personal history of malignant neoplasm of cervix uteri; Z79.899 Other long term (current) drug therapy
CPT/HCPCS: 36415; 71046; 71260; 80053; 82550; 82553; 83880; 84484; 85025; 85379; 85610; 85730; 93005; 99284; J1885; J7030; Q9967